=== PATIENT | female | born 1940 | race Caucasian/White ===

== ENCOUNTER 2021-06-03 19:14 | Observation (INO) | payer MEDICARE, OTHER ==
[2021-06-03] MEDS ORDERED: Albuterol/Ipratropium 3.0-0.5 MG/3 ML Neb Soln NEB ONE (19:27)
--- NOTE | 2021-06-03 19:39 | EDM.PDOC ---
ED HPI GENERAL MEDICAL PROBLEM - General Chief Complaint: Respiratory Problem Stated Complaint: SUMEET AMB Time Seen by Provider: 06/03/21 19:16 Source of Information: Reports: Patient, EMS History Limitations: Reports: No Limitations - History of Present Illness INITIAL COMMENTS - FREE TEXT/NARRATIVE: The patient presents by [facility] for shortness of breath, cough and fever. This started a couple days ago. The patient has a history of COPD and she is supposed to be on oxygen. She left it at home because the tank was to big for travel. She tried to get a portable tank but they could not accommodate the patient before she left. She has a productive cough. Her oxygen saturations were in the 80s when EMS arrived. They gave her oxygen and a breathing treatment. She feels a little better. She has no chest pain. She has no swelling or pain in her legs. Onset: Gradual Duration: Day(s): Severity: Moderate Improves with: Reports: None Worsens with: Reports: None Associated Symptoms: Reports: Cough, Fever/Chills, Shortness of Breath. Denies: Chest Pain, Headaches, Nausea/Vomiting - Related Data Allergies Allergy/AdvReac Type Severity Reaction Status Date / Time No Known Allergies Allergy Verified 06/03/21 19:25 Home Meds: Home Meds . [Unable To Obtain] 1 dose PO ASDIRECTED 06/03/21 [History] Past Medical History HEENT History: Reports: Other (See Below) Other HEENT History: no teeth Cardiovascular History: Reports: High Cholesterol, Hypertension Respiratory History: Reports: COPD Musculoskeletal History: Reports: Back Pain, Chronic, Other (See Below) Other Musculoskeletal History: back surgeries - Past Surgical History HEENT Surgical History: Reports: Oral Surgery Social & Family History - Tobacco Use Tobacco Use Status *Q: Never Tobacco User Second Hand Smoke Exposure: No - Caffeine Use Caffeine Use: Reports: None - Recreational Drug Use Recreational Drug Use: No ED ROS GENERAL - Review of Systems Review Of Systems: See Below Constitutional: Reports: Fever, Chills HEENT: Reports: No Symptoms Respiratory: Reports: Shortness of Breath, Wheezing, Cough Cardiovascular: Reports: No Symptoms Endocrine: Reports: No Symptoms GI/Abdominal: Reports: No Symptoms : Reports: No Symptoms Musculoskeletal: Reports: No Symptoms Skin: Reports: No Symptoms Neurological: Reports: No Symptoms ED EXAM, GENERAL - Physical Exam Exam: See Below Exam Limited By: No Limitations General Appearance: Alert, No Apparent Distress Ears: Normal External Exam Nose: Normal Inspection Head: Atraumatic, Normocephalic Neck: Normal Inspection Respiratory/Chest: Decreased Breath Sounds, Rhonchi Cardiovascular: No Edema, No Murmur, Tachycardia GI/Abdominal: Soft, Non-Tender, No Organomegaly, No Mass Back Exam: Normal Inspection Extremities: Normal Inspection #1 Interpretation EKG Date: 06/03/21 Time: 19:38 Rhythm: Other (sinus tachycardia) Rate (Beats/Min): 111 [place]: Normal P-Wave: Present QRS: Normal ST-T: Normal QT: Normal Course - Vital Signs Last Recorded V/S: Last Vital Signs Temp 99.8 F 06/03/21 19:23 Pulse 113 H 06/03/21 19:23 Resp 22 H 06/03/21 19:23 BP 161/81 H 06/03/21 19:23 Pulse Ox 95 06/04/21 01:07 - Orders/Labs/Meds Orders: Active Orders 24 hr Category Date Time Status Oxygen Therapy [RC] ASDIRECTED Care 06/03/21 19:50 Active Peripheral IV Care [RC] . DIRECTED Care 06/03/21 19:29 Active RT Aerosol Therapy [RC] ASDIRECTED Care 06/04/21 01:07 Active Ang Chest [CT] Stat Exams 06/03/21 20:44 Taken Chest 1V Frontal [CR] Stat Exams 06/03/21 19:28 Taken BLOOD CULTURE [MREF] Stat Lab 06/03/21 19:37 Received BLOOD CULTURE [MREF] Stat Lab 06/03/21 19:46 Received Sodium Chloride 0.9% [Normal Saline] 100 ml Med 06/03/21 21:45 Active IV ASDIRECTED Sodium Chloride 0.9% [Saline Flush] Med 06/03/21 19:27 Active 10 ml FLUSH ASDIRECTED PRN Blood Culture x2 Reflex Set [OM.PC] Stat Oth 06/03/21 19:28 Ordered Isolation [COMM] Routine Oth 06/03/21 19:31 Ordered Peripheral IV Insertion Adult [OM.PC] Stat Oth 06/03/21 19:28 Ordered Medication Orders Sodium Chloride (Normal Saline) 100 mls @ 30 mls/min IV ASDIRECTED [facility] Last Admin: 06/03/21 21:38 Dose: 30 mls/min Documented by: MAY Sodium Chloride (Sodium Chloride 0.9% 10 Ml Syringe) 10 ml FLUSH ASDIRECTED PRN PRN Reason: Keep Vein Open Last Admin: 06/03/21 21:38 Dose: 10 ml Documented by: Admin: 06/03/21 19:49 Dose: 10 ml Documented by: MICHELE Labs: Laboratory Tests 06/03/21 06/03/21 06/03/21 Range/Units 19:16 19:20 19:20 WBC 6.58 (3.98-10.04) K/mm3 RBC 5.26 H (3.98-5.22) M/mm3 Hgb 13.6 (11.2-15.7) gm/dl Hct 44.4 (34.1-44.9) % MCV 84.4 (79.4-94.8) fl MCH 25.9 (25.6-32.2) pg MCHC 30.6 L (32.2-35.5) g/dl RDW Std Deviation 52.4 H (36.4-46.3) fL Plt Count 152 L (182-369) K/mm3 MPV 11.3 (9.4-12.3) fl Neutrophils % (Manual) 77 H (40-60) % Band Neutrophils % 0 (0-10) % Lymphocytes % (Manual) 16 L (20-40) % Atypical Lymphs % 0 % Monocytes % (Manual) 7 (2-10) % Eosinophils % (Manual) 0 L (0.7-5.8) % Basophils % (Manual) 0 L (0.1-1.2) Platelet Estimate Adequate Plt Morphology Comment Normal RBC Morph Comment Normal PT (9.7-12.0) SECONDS INR D-Dimer, Quantitative 0.63 H (0.19-0.50) mg/L Puncture Site ABG pH (7.35-7.45) ABG pCO2 (35.0-45.0) mmHg ABG pO2 (80.0-100.0) mmHg ABG HCO3 (22.0-26.0) meq/L ABG O2 Saturation (96.0-97.0) % ABG Base Excess (-2-2.0) Mata Test A-a Gradient mmHg O2 Delivery Device Oxygen Flow Rate FiO2 (21.00-100.00) % Sodium (136-145) mEq/L Potassium (3.5-5.1) mEq/L Chloride (98-107) mEq/L Carbon Dioxide (21-32) mEq/L Anion Gap (5-15) BUN (7-18) mg/dL Creatinine (0.55-1.02) mg/dL Est Cr Clr Drug Dosing mL/min Estimated GFR (MDRD) (>60) mL/min BUN/Creatinine Ratio (14-18) Glucose (70-99) mg/dL Lactic Acid (0.4-2.0) mmol/L Calcium (8.5-10.1) mg/dL Total Bilirubin (0.2-1.0) mg/dL AST (15-37) U/L ALT (14-59) U/L Alkaline Phosphatase (46-116) U/L Troponin I (0.00-0.056) ng/mL C-Reactive Protein (<1.0) mg/dL NT-Pro-B Natriuret Pep (0-450) pg/mL Total Protein (6.4-8.2) g/dl Albumin (3.4-5.0) g/dl Globulin gm/dL Albumin/Globulin Ratio (1-2) Influenza Type A RNA Negative (NEGATIVE) RSV RNA (INAAT) Positive H (NEGATIVE) Influenza Type B RNA Negative (NEGATIVE) SARS-CoV-2 RNA (MOHAMUD) Negative (NEGATIVE) 06/03/21 06/03/21 06/03/21 Range/Units 19:20 19:20 19:20 WBC (3.98-10.04) K/mm3 RBC (3.98-5.22) M/mm3 Hgb (11.2-15.7) gm/dl Hct (34.1-44.9) % MCV (79.4-94.8) fl MCH (25.6-32.2) pg MCHC (32.2-35.5) g/dl RDW Std Deviation (36.4-46.3) fL Plt Count (182-369) K/mm3 MPV (9.4-12.3) fl Neutrophils % (Manual) (40-60) % Band Neutrophils % (0-10) % Lymphocytes % (Manual) (20-40) % Atypical Lymphs % % Monocytes % (Manual) (2-10) % Eosinophils % (Manual) (0.7-5.8) % Basophils % (Manual) (0.1-1.2) Platelet Estimate Plt Morphology Comment RBC Morph Comment PT (9.7-12.0) SECONDS INR D-Dimer, Quantitative (0.19-0.50) mg/L Puncture Site ABG pH (7.35-7.45) ABG pCO2 (35.0-45.0) mmHg ABG pO2 (80.0-100.0) mmHg ABG HCO3 (22.0-26.0) meq/L ABG O2 Saturation (96.0-97.0) % ABG Base Excess (-2-2.0) Mata Test A-a Gradient mmHg O2 Delivery Device Oxygen Flow Rate FiO2 (21.00-100.00) % Sodium 137 (136-145) mEq/L Potassium 4.3 (3.5-5.1) mEq/L Chloride 100 (98-107) mEq/L Carbon Dioxide 27 (21-32) mEq/L Anion Gap 14.3 (5-15) BUN 17 (7-18) mg/dL Creatinine 1.0 (0.55-1.02) mg/dL Est Cr Clr Drug Dosing 38.35 mL/min Estimated GFR (MDRD) 54 (>60) mL/min BUN/Creatinine Ratio 17.0 (14-18) Glucose 95 (70-99) mg/dL Lactic Acid 1.4 (0.4-2.0) mmol/L Calcium 8.4 L (8.5-10.1) mg/dL Total Bilirubin 0.9 (0.2-1.0) mg/dL AST 57 H (15-37) U/L ALT 38 (14-59) U/L Alkaline Phosphatase 286 H (46-116) U/L Troponin I 0.091 H* (0.00-0.056) ng/mL C-Reactive Protein 6.5 H* (<1.0) mg/dL NT-Pro-B Natriuret Pep 198 (0-450) pg/mL Total Protein 7.4 (6.4-8.2) g/dl Albumin 2.9 L (3.4-5.0) g/dl Globulin 4.5 gm/dL Albumin/Globulin Ratio 0.6 L (1-2) Influenza Type A RNA (NEGATIVE) RSV RNA (INAAT) (NEGATIVE) Influenza Type B RNA (NEGATIVE) SARS-CoV-2 RNA (MOHAMUD) (NEGATIVE) 06/03/21 06/03/21 06/03/21 Range/Units 19:20 20:03 21:48 WBC (3.98-10.04) K/mm3 RBC (3.98-5.22) M/mm3 Hgb (11.2-15.7) gm/dl Hct (34.1-44.9) % MCV (79.4-94.8) fl MCH (25.6-32.2) pg MCHC (32.2-35.5) g/dl RDW Std Deviation (36.4-46.3) fL Plt Count (182-369) K/mm3 MPV (9.4-12.3) fl Neutrophils % (Manual) (40-60) % Band Neutrophils % (0-10) % Lymphocytes % (Manual) (20-40) % Atypical Lymphs % % Monocytes % (Manual) (2-10) % Eosinophils % (Manual) (0.7-5.8) % Basophils % (Manual) (0.1-1.2) Platelet Estimate Plt Morphology Comment RBC Morph Comment PT 18.0 H (9.7-12.0) SECONDS INR 1.65 D-Dimer, Quantitative (0.19-0.50) mg/L Puncture Site Lt radial ABG pH 7.38 (7.35-7.45) ABG pCO2 41.8 (35.0-45.0) mmHg ABG pO2 64.0 L (80.0-100.0) mmHg ABG HCO3 23.9 (22.0-26.0) meq/L ABG O2 Saturation 93.7 L (96.0-97.0) % ABG Base Excess -0.8 (-2-2.0) Mata Test Positive A-a Gradient 84 mmHg O2 Delivery Device Nasal cannula Oxygen Flow Rate 2.0 FiO2 28.00 (21.00-100.00) % Sodium (136-145) mEq/L Potassium (3.5-5.1) mEq/L Chloride (98-107) mEq/L Carbon Dioxide (21-32) mEq/L Anion Gap (5-15) BUN (7-18) mg/dL Creatinine (0.55-1.02) mg/dL Est Cr Clr Drug Dosing mL/min Estimated GFR (MDRD) (>60) mL/min BUN/Creatinine Ratio (14-18) Glucose (70-99) mg/dL Lactic Acid (0.4-2.0) mmol/L Calcium (8.5-10.1) mg/dL Total Bilirubin (0.2-1.0) mg/dL AST (15-37) U/L ALT (14-59) U/L Alkaline Phosphatase (46-116) U/L Troponin I 0.125 H* (0.00-0.056) ng/mL C-Reactive Protein (<1.0) mg/dL NT-Pro-B Natriuret Pep (0-450) pg/mL Total Protein (6.4-8.2) g/dl Albumin (3.4-5.0) g/dl Globulin gm/dL Albumin/Globulin Ratio (1-2) Influenza Type A RNA (NEGATIVE) RSV RNA (INAAT) (NEGATIVE) Influenza Type B RNA (NEGATIVE) SARS-CoV-2 RNA (MOHAMUD) (NEGATIVE) 06/04/21 Range/Units 01:22 WBC (3.98-10.04) K/mm3 RBC (3.98-5.22) M/mm3 Hgb (11.2-15.7) gm/dl Hct (34.1-44.9) % MCV (79.4-94.8) fl MCH (25.6-32.2) pg MCHC (32.2-35.5) g/dl RDW Std Deviation (36.4-46.3) fL Plt Count (182-369) K/mm3 MPV (9.4-12.3) fl Neutrophils % (Manual) (40-60) % Band Neutrophils % (0-10) % Lymphocytes % (Manual) (20-40) % Atypical Lymphs % % Monocytes % (Manual) (2-10) % Eosinophils % (Manual) (0.7-5.8) % Basophils % (Manual) (0.1-1.2) Platelet Estimate Plt Morphology Comment RBC Morph Comment PT (9.7-12.0) SECONDS INR D-Dimer, Quantitative (0.19-0.50) mg/L Puncture Site ABG pH (7.35-7.45) ABG pCO2 (35.0-45.0) mmHg ABG pO2 (80.0-100.0) mmHg ABG HCO3 (22.0-26.0) meq/L ABG O2 Saturation (96.0-97.0) % ABG Base Excess (-2-2.0) Mata Test A-a Gradient mmHg O2 Delivery Device Oxygen Flow Rate FiO2 (21.00-100.00) % Sodium (136-145) mEq/L Potassium (3.5-5.1) mEq/L Chloride (98-107) mEq/L Carbon Dioxide (21-32) mEq/L Anion Gap (5-15) BUN (7-18) mg/dL Creatinine (0.55-1.02) mg/dL Est Cr Clr Drug Dosing mL/min Estimated GFR (MDRD) (>60) mL/min BUN/Creatinine Ratio (14-18) Glucose (70-99) mg/dL Lactic Acid (0.4-2.0) mmol/L Calcium (8.5-10.1) mg/dL Total Bilirubin (0.2-1.0) mg/dL AST (15-37) U/L ALT (14-59) U/L Alkaline Phosphatase (46-116) U/L Troponin I 0.070 H* (0.00-0.056) ng/mL C-Reactive Protein (<1.0) mg/dL NT-Pro-B Natriuret Pep (0-450) pg/mL Total Protein (6.4-8.2) g/dl Albumin (3.4-5.0) g/dl Globulin gm/dL Albumin/Globulin Ratio (1-2) Influenza Type A RNA (NEGATIVE) RSV RNA (INAAT) (NEGATIVE) Influenza Type B RNA (NEGATIVE) SARS-CoV-2 RNA (MOHAMUD) (NEGATIVE) Meds: Medications Generic Name Dose Route Start Last Admin Trade Name Freq PRN Reason Stop Dose Admin Sodium Chloride 100 mls @ 30 mls/min 06/03/21 21:45 06/03/21 21:38 Normal Saline IV 30 mls/min ASDIRECTED PIA Administration Sodium Chloride 10 ml 06/03/21 19:27 06/03/21 21:38 Sodium Chloride 0.9% 10 Ml Syringe FLUSH 10 ml ASDIRECTED PRN Administration Keep Vein Open Discontinued Medications Generic Name Dose Route Start Last Admin Trade Name Bon PRN Reason Stop Dose Admin Albuterol/Ipratropium 3 ml 06/03/21 19:27 06/03/21 19:54 Albuterol/Ipratropium 3.0-0.5 Mg/3 Ml Neb Soln NEB 06/03/21 19:28 3 ml ONETIME ONE Administration Albuterol/Ipratropium 3 ml 06/04/21 01:06 06/04/21 01:23 Albuterol/Ipratropium 3.0-0.5 Mg/3 Ml Neb Soln NEB 06/04/21 01:07 3 ml ONETIME ONE Administration Aspirin 324 mg 06/03/21 22:43 Aspirin 81 Mg Tab.Chew PO 06/03/21 22:44 ONETIME ONE Ceftriaxone Sodium 2 gm/ 100 mls @ 200 mls/hr 06/03/21 20:42 06/03/21 21:14 Sodium Chloride IV 06/03/21 21:11 200 mls/hr ONETIME ONE Administration Iopamidol 100 ml 06/03/21 21:36 06/03/21 21:38 Iopamidol 755 Mg/Ml 100 Ml Bottle IVPUSH 06/03/21 21:37 100 ml ONETIME ONE Administration Methylprednisolone Sodium Succinate 125 mg 06/03/21 20:42 06/03/21 21:14 Methylprednisolone Sodium Succinate 125 Mg/2 Ml Sdv IVPUSH 06/03/21 20:43 125 mg ONETIME ONE Administration Sodium Chloride 10 ml 06/03/21 21:36 06/03/21 22:00 Sodium Chloride 0.9% 10 Ml Sdv FLUSH 06/03/21 21:37 10 ml ONETIME ONE Administration - Re-Assessments/Exams Free Text/Narrative Re-Assessment/Exam: 06/03/21 19:44 I ordered oxygen, IV saline lock, EKG, CXR, COVID, influenza, blood cultures, and labs. Her EKG shows a sinus tachycardia with no acute changes. 06/03/21 22:07 Her CXR shows some possible bronchitis. Her WBC was normal. Her platelets are a little low at 152. Her D-dimer was elevated at 0.63. Her pH is normal at 7.38. Her pCO2 is normal at 41.8. Her pO2 is low at 64. Her lactic acid is normal at 1.4. Her AST is elevated at 57. Her alk phos was elevated at 286. Her troponin is elevated at 0.091. Her CRP is elevated at 6.5. Her BNP is elevated at 198. Her influenza and COVID are negative. She is positive for RSV. She has 2 grandchildren sick with RSV and one is admitted to [place]. I have ordered a CT angio of her chest and repeat troponin. 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 Findings of bronchitis/bronchiolitis. Liver appears cirrhotic. Splenomegaly. I am waiting on the repeat troponin. 06/04/21 02:26 Her repeat troponin went up slightly to 0.125. I still feel this is from the hypoxia she had from no oxygen and the RSV bronchitis. I will give her another breathing treatment and repeat the troponin at 6 hours. The repeat was 0.07. I will admit to the hospitalist service. Departure - Departure Time of Disposition: 02:30 Disposition: Refer to Observation Condition: Fair Clinical Impression: RSV bronchitis, Hypoxia, COPD exacerbation, Elevated troponin - Discharge Information Forms: ED Department Discharge Sepsis Event Note (ED) - Focused Exam Vital Signs: Vital Signs Temp Pulse Resp BP Pulse Ox Pulse Ox 06/04/21 01:07 95 06/03/21 19:55 95 06/03/21 19:50 95 06/03/21 19:23 99.8 F 113 H 22 H 161/81 H 90 L - My Orders Last 24 Hours: My Active Orders 06/03/21 19:27 Sodium Chloride 0.9% [Saline Flush] 10 ml FLUSH ASDIRECTED PRN 06/03/21 19:28 Chest 1V Frontal [CR] Stat Blood Culture x2 Reflex Set [OM.PC] Stat Peripheral IV Insertion Adult [OM.PC] Stat 06/03/21 19:29 Peripheral IV Care [RC] . DIRECTED 06/03/21 19:31 Isolation [COMM] Routine 06/03/21 19:37 BLOOD CULTURE [MREF] Stat 06/03/21 19:46 BLOOD CULTURE [MREF] Stat 06/03/21 19:50 Oxygen Therapy [RC] ASDIRECTED 06/03/21 20:44 Ang Chest [CT] Stat 06/03/21 21:45 Sodium Chloride 0.9% [Normal Saline] 100 ml IV ASDIRECTED 06/04/21 01:07 RT Aerosol Therapy [RC] ASDIRECTED - Assessment/Plan Last 24 Hours: My Active Orders 06/03/21 19:27 Sodium Chloride 0.9% [Saline Flush] 10 ml FLUSH ASDIRECTED PRN 06/03/21 19:28 Chest 1V Frontal [CR] Stat Blood Culture x2 Reflex Set [OM.PC] Stat Peripheral IV Insertion Adult [OM.PC] Stat 06/03/21 19:29 Peripheral IV Care [RC] . DIRECTED 06/03/21 19:31 Isolation [COMM] Routine 06/03/21 19:37 BLOOD CULTURE [MREF] Stat 06/03/21 19:46 BLOOD CULTURE [MREF] Stat 06/03/21 19:50 Oxygen Therapy [RC] ASDIRECTED 06/03/21 20:44 Ang Chest [CT] Stat 06/03/21 21:45 Sodium Chloride 0.9% [Normal Saline] 100 ml IV ASDIRECTED 06/04/21 01:07 RT Aerosol Therapy [RC] ASDIRECTED
[2021-06-03] MEDS: Sodium Chloride 0.9% 10 ML Syringe FLUSH PRN ×2 (19:49→21:38)
[2021-06-03 20:16] LABS: CORONAVIRUS COVID-19 NAA NEGATIVE (NEGATIVE)
[2021-06-03] MEDS ORDERED: cefTRIAXone 2 GM in Sodium Chloride 0.9% 100 ML IV ONE (20:42)
[2021-06-03] MEDS ORDERED: methylPREDNISolone Sodium Succinate 125 MG/2 ML SDV IVPUSH ONE (20:42)
[2021-06-03] MEDS ORDERED: Iopamidol 755 Mg/ML 100 ML Bottle IVPUSH ONE (21:36)
[2021-06-03] MEDS ORDERED: Sodium Chloride 0.9% 10 ML SDV FLUSH ONE (21:36)
[2021-06-03] MEDS ORDERED: Sodium Chloride 0.9% 100 ML IV SCH (21:45)
[2021-06-03] MEDS ORDERED: Aspirin 81 MG Tab.Chew PO ONE (22:43)
[2021-06-04] MEDS ORDERED: Albuterol/Ipratropium 3.0-0.5 MG/3 ML Neb Soln NEB ONE (01:06)
[2021-06-04] MEDS: Acetaminophen 325 MG Tab PO PRN ×2 (05:33→21:41)
--- NOTE | 2021-06-04 06:55 | PCM.HP.2 ---
H&P History of Present Illness - General Date of Service: 06/04/21 Admit Problem/Dx: Admission Diagnosis/Problem Admission Diagnosis/Problem Bronchitis Source of Information: Patient, Old Records, Provider, RN, RN Notes Reviewed History Limitations: Reports: No Limitations - History of Present Illness Initial Comments - Free Text/Narative: Is a 80-year-old female who presents to our ED on the evening of 06/03/2021 via [place] [facility] for shortness of breath, cough and fever that has been ongoing for a few days. Patient resides in [facility] but is up here visiting her daughter. She does have a granddaughter who is RSV positive and is currently hospitalized. She has a history of COPD and is supposed to be on oxygen therapy at night chronically (2.5L) however she has been traveling and did not bring it with. She reports a productive cough. Upon EMS arrival saturations were noted to be in the 80s. She was given a breathing treatment and started on oxygen which improved her symptoms. Denies any chest pain, swelling, or pain in her legs. In the ED twelve-lead EKG was obtained showing sinus tachycardia 111 bpm but no ectopy. Temp was 99.8 Fahrenheit. Respirations 22. Blood pressure 161/81. Pulse ox 95% on oxygen. Labs were obtained showing a WBC of 6.58. Hemoglobin 13.6. Platelet 152,000. Neutrophils were elevated at 77%. There is no bandemia. D-dimer 0.63. Sodium is 137. Potassium 4.3. Chloride 100. Carbon dioxide 27. Anion gap 14.3. BUN is 17. Creatinine 1.0. GFR is 54. Glucose 95. Lactic acid 1.4. Calcium 8.4. Bilirubin 0.9. AST is 57, ALT 38, alkaline phosphatase 286. Troponin is elevated at 0.091. This is repeated and elevated at 0.125. Again this is rechecked and has come down to 0.070. CRP is 6.5. proBNP is 198. Albumin is 2.9. INR is 1.65. ABGs obtained in the left radial with a pH of 7.38. PCO2 of 41.8. PO2 of 64.0. HCO3 of 23.9. O2 saturations 93.7. AA gradient is 84. Obtained well on 2 L via nasal cannula. SARS-CoV-2 RNA is negative. Influenza a and B are both negative. RSV is positive. Chest x-ray is obtained and shows prior surgery and a left lung base nodule. Consider repeat CT study to confirm stability in 6 months. CTA is obtained showing "1. 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 Atherosclerotic calcification is seen within this area and the study is not optimal for evaluation of stenosis. Formal angiogram would be helpful to further define if clinically indicated. 2. Scattered nodularity within the chest. 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 Please correlate if patient symptoms warrant further evaluation repeat CT study in 6 months to confirm stability. 3. Cirrhotic change within the liver. 4. No findings of pulmonary embolism. 5. Other findings as described above are most likely chronic." She is given a DuoNeb and 325 mg aspirin. She is given 2 g of Rocephin and 125 mg methylprednisolone. She carries a history of HLD, hypertension, COPD, chronic back pain. She is a full code. She does not have a PCP locally. She subsequently admitted observation status on telemetry to the medical floor for management of her RSV, hypoxia, COPD exacerbation, and elevated troponin. - Related Data Allergies/Adverse Reactions: Allergies Allergy/AdvReac Type Severity Reaction Status Date / Time No Known Allergies Allergy Verified 06/03/21 19:25 Home Medications: Home Meds . [Unable To Obtain] 1 dose PO ASDIRECTED 06/03/21 [History] Past Medical History HEENT History: Reports: Cataract, Impaired Vision, Other (See Below) Other HEENT History: Missing teeth, wears glasses Cardiovascular History: Reports: High Cholesterol, Hypertension Respiratory History: Reports: Bronchitis, Recurrent, COPD, Pneumonia, Recurrent Gastrointestinal History: Reports: Cirrhosis, Hiatal Hernia Musculoskeletal History: Reports: Back Pain, Chronic, Other (See Below) Other Musculoskeletal History: back surgery twice to lumbar spine Neurological History: Reports: Migraines Psychiatric History: Reports: Anxiety, Depression Endocrine/Metabolic History: Reports: Hypothyroidism, Obesity/BMI 30+ Hematologic History: Reports: Blood Transfusion(s) Oncologic (Cancer) History: Reports: Breast - Infectious Disease History Infectious Disease History: Reports: Shingles - Past Surgical History HEENT Surgical History: Reports: Oral Surgery Cardiovascular Surgical History: Reports: None Respiratory Surgical History: Reports: None GI Surgical History: Reports: Cholecystectomy, Lysis of Adhesions Female Surgical History: Reports: None Endocrine Surgical History: Reports: None Neurological Surgical History: Reports: None Musculoskeletal Surgical History: Reports: Hip Replacement, Other (See Below) Other Musculoskeletal Surgeries/Procedures:: bilateral hips and bilateral knees replaced Oncologic Surgical History: Reports: Lumpectomy, Mastectomy, Other (See Below) Other Oncologic Surgeries/Procedures: Lt mastectomy, Rt breast lumpectomy Social & Family History - Tobacco Use Tobacco Use Status *Q: Former Tobacco User Years of Tobacco use: 15 Packs/Tins Daily: 1 Used Tobacco, but Quit: Yes Month/Year Tobacco Last Used: unknown Tobacco Use Comment: Pt reportedly quit in her 30s Second Hand Smoke Exposure: No - Caffeine Use Caffeine Use: Reports: None - Recreational Drug Use Recreational Drug Use: No H&P Review of Systems - Review of Systems: Review Of Systems: See Below General: Reports: Fever, Chills, Malaise, Weakness, Fatigue HEENT: Reports: No Symptoms. Denies: Headaches, Sore Throat Pulmonary: Reports: Shortness of Breath, Wheezing, Cough, Sputum. Denies: Pleuritic Chest Pain Cardiovascular: Reports: Dyspnea on Exertion, Orthopnea. Denies: Chest Pain, Palpitations, Edema Gastrointestinal: Reports: No Symptoms. Denies: Abdominal Pain, Constipation, Diarrhea, Nausea, Vomiting Genitourinary: Reports: No Symptoms. Denies: Pain Musculoskeletal: Reports: Back Pain (Chronic ) Skin: Reports: No Symptoms. Denies: Cyanosis Psychiatric: Reports: No Symptoms. Denies: Confusion Neurological: Reports: No Symptoms, Difficulty Walking, Weakness. Denies: Confusion, Dizziness, Headache, Numbness, Pre-Existing Deficit, Seizure, Syncope, Tingling, Tremors, Trouble Speaking, Change in Speech, Gait Disturbance Hematologic/Lymphatic: Reports: No Symptoms Immunologic: Reports: No Symptoms Exam - Exam Exam: See Below - Vital Signs Vital Signs: Last Vital Signs Temp 98.4 F 06/04/21 04:33 Pulse 92 06/04/21 03:50 Resp 20 06/04/21 03:50 BP 123/59 L 06/04/21 03:50 Pulse Ox 95 06/04/21 03:50 Weight: 194 lb - Exam Quality Assessment: Supplemental Oxygen (2L), DVT Prophylaxis. No: Urinary Catheter General: Alert, Oriented, Cooperative. No: Mild Distress HEENT: Conjunctiva Clear, EACs Clear, Mucosa Moist & [place], Posterior Pharynx Clear Neck: Supple, Trachea Midline Lungs: Normal Respiratory Effort, Decreased Breath Sounds, Rhonchi, Wheezing Cardiovascular: Regular Rate, Regular Rhythm GI/Abdominal Exam: Normal Bowel Sounds, Soft, Non-Tender, No Distention (Female) Exam: Deferred Rectal (Female) Exam: Deferred Back Exam: Normal Inspection, Decreased Range of Motion Extremities: Normal Inspection, Normal Range of Motion, Non-Tender, No Pedal Edema, Normal Capillary Refill Peripheral Pulses: 2+: Radial (L), Radial (R), Dorsalis Pedis (L), Dorsalis Pedis (R) Skin: Warm, Dry, Intact Neurological: Cranial Nerves Intact (Grossly) Neuro Extensive - Mental Status: Alert, Oriented x3, Normal Mood/Affect - Patient Data Lab Results Last 24 hrs: Laboratory Results - last 24 hr 06/03/21 06/03/21 06/03/21 Range/Units 19:16 19:20 19:20 WBC 6.58 (3.98-10.04) K/mm3 RBC 5.26 H (3.98-5.22) M/mm3 Hgb 13.6 (11.2-15.7) gm/dl Hct 44.4 (34.1-44.9) % MCV 84.4 (79.4-94.8) fl MCH 25.9 (25.6-32.2) pg MCHC 30.6 L (32.2-35.5) g/dl RDW Std Deviation 52.4 H (36.4-46.3) fL Plt Count 152 L (182-369) K/mm3 MPV 11.3 (9.4-12.3) fl Neutrophils % (Manual) 77 H (40-60) % Band Neutrophils % 0 (0-10) % Lymphocytes % (Manual) 16 L (20-40) % Atypical Lymphs % 0 % Monocytes % (Manual) 7 (2-10) % Eosinophils % (Manual) 0 L (0.7-5.8) % Basophils % (Manual) 0 L (0.1-1.2) Platelet Estimate Adequate Plt Morphology Comment Normal RBC Morph Comment Normal PT (9.7-12.0) SECONDS INR D-Dimer, Quantitative 0.63 H (0.19-0.50) mg/L Puncture Site ABG pH (7.35-7.45) ABG pCO2 (35.0-45.0) mmHg ABG pO2 (80.0-100.0) mmHg ABG HCO3 (22.0-26.0) meq/L ABG O2 Saturation (96.0-97.0) % ABG Base Excess (-2-2.0) Mata Test A-a Gradient mmHg O2 Delivery Device Oxygen Flow Rate FiO2 (21.00-100.00) % Sodium (136-145) mEq/L Potassium (3.5-5.1) mEq/L Chloride (98-107) mEq/L Carbon Dioxide (21-32) mEq/L Anion Gap (5-15) BUN (7-18) mg/dL Creatinine (0.55-1.02) mg/dL Est Cr Clr Drug Dosing mL/min Estimated GFR (MDRD) (>60) mL/min BUN/Creatinine Ratio (14-18) Glucose (70-99) mg/dL Lactic Acid (0.4-2.0) mmol/L Calcium (8.5-10.1) mg/dL Total Bilirubin (0.2-1.0) mg/dL AST (15-37) U/L ALT (14-59) U/L Alkaline Phosphatase (46-116) U/L Troponin I (0.00-0.056) ng/mL C-Reactive Protein (<1.0) mg/dL NT-Pro-B Natriuret Pep (0-450) pg/mL Total Protein (6.4-8.2) g/dl Albumin (3.4-5.0) g/dl Globulin gm/dL Albumin/Globulin Ratio (1-2) Influenza Type A RNA Negative (NEGATIVE) RSV RNA (INAAT) Positive H (NEGATIVE) Influenza Type B RNA Negative (NEGATIVE) SARS-CoV-2 RNA (MOHAMUD) Negative (NEGATIVE) 06/03/21 06/03/21 06/03/21 Range/Units 19:20 19:20 19:20 WBC (3.98-10.04) K/mm3 RBC (3.98-5.22) M/mm3 Hgb (11.2-15.7) gm/dl Hct (34.1-44.9) % MCV (79.4-94.8) fl MCH (25.6-32.2) pg MCHC (32.2-35.5) g/dl RDW Std Deviation (36.4-46.3) fL Plt Count (182-369) K/mm3 MPV (9.4-12.3) fl Neutrophils % (Manual) (40-60) % Band Neutrophils % (0-10) % Lymphocytes % (Manual) (20-40) % Atypical Lymphs % % Monocytes % (Manual) (2-10) % Eosinophils % (Manual) (0.7-5.8) % Basophils % (Manual) (0.1-1.2) Platelet Estimate Plt Morphology Comment RBC Morph Comment PT (9.7-12.0) SECONDS INR D-Dimer, Quantitative (0.19-0.50) mg/L Puncture Site ABG pH (7.35-7.45) ABG pCO2 (35.0-45.0) mmHg ABG pO2 (80.0-100.0) mmHg ABG HCO3 (22.0-26.0) meq/L ABG O2 Saturation (96.0-97.0) % ABG Base Excess (-2-2.0) Mata Test A-a Gradient mmHg O2 Delivery Device Oxygen Flow Rate FiO2 (21.00-100.00) % Sodium 137 (136-145) mEq/L Potassium 4.3 (3.5-5.1) mEq/L Chloride 100 (98-107) mEq/L Carbon Dioxide 27 (21-32) mEq/L Anion Gap 14.3 (5-15) BUN 17 (7-18) mg/dL Creatinine 1.0 (0.55-1.02) mg/dL Est Cr Clr Drug Dosing 38.35 mL/min Estimated GFR (MDRD) 54 (>60) mL/min BUN/Creatinine Ratio 17.0 (14-18) Glucose 95 (70-99) mg/dL Lactic Acid 1.4 (0.4-2.0) mmol/L Calcium 8.4 L (8.5-10.1) mg/dL Total Bilirubin 0.9 (0.2-1.0) mg/dL AST 57 H (15-37) U/L ALT 38 (14-59) U/L Alkaline Phosphatase 286 H (46-116) U/L Troponin I 0.091 H* (0.00-0.056) ng/mL C-Reactive Protein 6.5 H* (<1.0) mg/dL NT-Pro-B Natriuret Pep 198 (0-450) pg/mL Total Protein 7.4 (6.4-8.2) g/dl Albumin 2.9 L (3.4-5.0) g/dl Globulin 4.5 gm/dL Albumin/Globulin Ratio 0.6 L (1-2) Influenza Type A RNA (NEGATIVE) RSV RNA (INAAT) (NEGATIVE) Influenza Type B RNA (NEGATIVE) SARS-CoV-2 RNA (MOHAMUD) (NEGATIVE) 06/03/21 06/03/21 06/03/21 Range/Units 19:20 20:03 21:48 WBC (3.98-10.04) K/mm3 RBC (3.98-5.22) M/mm3 Hgb (11.2-15.7) gm/dl Hct (34.1-44.9) % MCV (79.4-94.8) fl MCH (25.6-32.2) pg MCHC (32.2-35.5) g/dl RDW Std Deviation (36.4-46.3) fL Plt Count (182-369) K/mm3 MPV (9.4-12.3) fl Neutrophils % (Manual) (40-60) % Band Neutrophils % (0-10) % Lymphocytes % (Manual) (20-40) % Atypical Lymphs % % Monocytes % (Manual) (2-10) % Eosinophils % (Manual) (0.7-5.8) % Basophils % (Manual) (0.1-1.2) Platelet Estimate Plt Morphology Comment RBC Morph Comment PT 18.0 H (9.7-12.0) SECONDS INR 1.65 D-Dimer, Quantitative (0.19-0.50) mg/L Puncture Site Lt radial ABG pH 7.38 (7.35-7.45) ABG pCO2 41.8 (35.0-45.0) mmHg ABG pO2 64.0 L (80.0-100.0) mmHg ABG HCO3 23.9 (22.0-26.0) meq/L ABG O2 Saturation 93.7 L (96.0-97.0) % ABG Base Excess -0.8 (-2-2.0) Mata Test Positive A-a Gradient 84 mmHg O2 Delivery Device Nasal cannula Oxygen Flow Rate 2.0 FiO2 28.00 (21.00-100.00) % Sodium (136-145) mEq/L Potassium (3.5-5.1) mEq/L Chloride (98-107) mEq/L Carbon Dioxide (21-32) mEq/L Anion Gap (5-15) BUN (7-18) mg/dL Creatinine (0.55-1.02) mg/dL Est Cr Clr Drug Dosing mL/min Estimated GFR (MDRD) (>60) mL/min BUN/Creatinine Ratio (14-18) Glucose (70-99) mg/dL Lactic Acid (0.4-2.0) mmol/L Calcium (8.5-10.1) mg/dL Total Bilirubin (0.2-1.0) mg/dL AST (15-37) U/L ALT (14-59) U/L Alkaline Phosphatase (46-116) U/L Troponin I 0.125 H* (0.00-0.056) ng/mL C-Reactive Protein (<1.0) mg/dL NT-Pro-B Natriuret Pep (0-450) pg/mL Total Protein (6.4-8.2) g/dl Albumin (3.4-5.0) g/dl Globulin gm/dL Albumin/Globulin Ratio (1-2) Influenza Type A RNA (NEGATIVE) RSV RNA (INAAT) (NEGATIVE) Influenza Type B RNA (NEGATIVE) SARS-CoV-2 RNA (MOHAMUD) (NEGATIVE) 06/04/21 Range/Units 01:22 WBC (3.98-10.04) K/mm3 RBC (3.98-5.22) M/mm3 Hgb (11.2-15.7) gm/dl Hct (34.1-44.9) % MCV (79.4-94.8) fl MCH (25.6-32.2) pg MCHC (32.2-35.5) g/dl RDW Std Deviation (36.4-46.3) fL Plt Count (182-369) K/mm3 MPV (9.4-12.3) fl Neutrophils % (Manual) (40-60) % Band Neutrophils % (0-10) % Lymphocytes % (Manual) (20-40) % Atypical Lymphs % % Monocytes % (Manual) (2-10) % Eosinophils % (Manual) (0.7-5.8) % Basophils % (Manual) (0.1-1.2) Platelet Estimate Plt Morphology Comment RBC Morph Comment PT (9.7-12.0) SECONDS INR D-Dimer, Quantitative (0.19-0.50) mg/L Puncture Site ABG pH (7.35-7.45) ABG pCO2 (35.0-45.0) mmHg ABG pO2 (80.0-100.0) mmHg ABG HCO3 (22.0-26.0) meq/L ABG O2 Saturation (96.0-97.0) % ABG Base Excess (-2-2.0) Mata Test A-a Gradient mmHg O2 Delivery Device Oxygen Flow Rate FiO2 (21.00-100.00) % Sodium (136-145) mEq/L Potassium (3.5-5.1) mEq/L Chloride (98-107) mEq/L Carbon Dioxide (21-32) mEq/L Anion Gap (5-15) BUN (7-18) mg/dL Creatinine (0.55-1.02) mg/dL Est Cr Clr Drug Dosing mL/min Estimated GFR (MDRD) (>60) mL/min BUN/Creatinine Ratio (14-18) Glucose (70-99) mg/dL Lactic Acid (0.4-2.0) mmol/L Calcium (8.5-10.1) mg/dL Total Bilirubin (0.2-1.0) mg/dL AST (15-37) U/L ALT (14-59) U/L Alkaline Phosphatase (46-116) U/L Troponin I 0.070 H* (0.00-0.056) ng/mL C-Reactive Protein (<1.0) mg/dL NT-Pro-B Natriuret Pep (0-450) pg/mL Total Protein (6.4-8.2) g/dl Albumin (3.4-5.0) g/dl Globulin gm/dL Albumin/Globulin Ratio (1-2) Influenza Type A RNA (NEGATIVE) RSV RNA (INAAT) (NEGATIVE) Influenza Type B RNA (NEGATIVE) SARS-CoV-2 RNA (MOHAMUD) (NEGATIVE) Result Diagrams: 06/04/21 07:20 06/04/21 07:20 Sepsis Event Note - Evaluation Sepsis Screening Result: Sepsis Risk - Focused Exam Vital Signs: Vital Signs Temp Temp Pulse Pulse Resp BP BP 06/04/21 04:33 98.4 F 06/04/21 03:50 92 20 123/59 L 06/04/21 01:07 06/03/21 19:55 06/03/21 19:50 06/03/21 19:23 99.8 F 113 H 22 H 161/81 H Pulse Ox Pulse Ox 06/04/21 04:33 06/04/21 03:50 95 06/04/21 01:07 95 06/03/21 19:55 95 06/03/21 19:50 95 06/03/21 19:23 90 L - Problem List (1) Acute and chronic respiratory failure with hypoxia SNOMED Code(s): 35336173, 740426352 ICD Code: J96.21 - ACUTE AND CHRONIC RESPIRATORY FAILURE WITH HYPOXIA Status: Acute Priority: High Current Visit: Yes (2) On home O2 SNOMED Code(s): 958647459779 ICD Code: Z99.81 - DEPENDENCE ON SUPPLEMENTAL OXYGEN Status: Chronic Priority: Medium Current Visit: Yes (3) HLD (hyperlipidemia) SNOMED Code(s): 84748370 ICD Code: E78.5 - HYPERLIPIDEMIA, UNSPECIFIED Status: Chronic Priority: Low Current Visit: No Qualifiers: Hyperlipidemia type: unspecified Qualified Code(s): E78.5 - Hyperlipidemia, unspecified (4) HTN (hypertension) SNOMED Code(s): 58268367 ICD Code: I10 - ESSENTIAL (PRIMARY) HYPERTENSION Status: Chronic Priority: Medium Current Visit: No Qualifiers: Hypertension type: unspecified Qualified Code(s): I10 - Essential (primary) hypertension (5) COPD (chronic obstructive pulmonary disease) SNOMED Code(s): 90752292 ICD Code: J44.9 - CHRONIC OBSTRUCTIVE PULMONARY DISEASE, UNSPECIFIED Status: Chronic Priority: High Current Visit: Yes Qualifiers: COPD type: unspecified COPD Qualified Code(s): J44.9 - Chronic obstructive pulmonary disease, unspecified (6) Chronic back pain SNOMED Code(s): 318499421 ICD Code: M54.9 - DORSALGIA, UNSPECIFIED; G89.29 - OTHER CHRONIC PAIN Status: Chronic Priority: Low Current Visit: No Qualifiers: Back pain location: back pain in unspecified location Back pain laterality: unspecified Qualified Code(s): M54.9 - Dorsalgia, unspecified; G89.29 - Other chronic pain (7) COPD exacerbation SNOMED Code(s): 377008763 ICD Code: J44.1 - CHRONIC OBSTRUCTIVE PULMONARY DISEASE W (ACUTE) EXACERBATION Status: Acute Priority: High Current Visit: Yes (8) Elevated troponin SNOMED Code(s): 324335892, 047729924, 252743796 ICD Code: R77.8 - OTHER SPECIFIED ABNORMALITIES OF PLASMA PROTEINS Status: Acute Priority: High Current Visit: Yes (9) RSV bronchitis SNOMED Code(s): 15830851 ICD Code: J20.5 - ACUTE BRONCHITIS DUE TO RESPIRATORY SYNCYTIAL VIRUS Status: Acute Priority: High Current Visit: Yes (10) Thrombocytopenia SNOMED Code(s): 046642621 ICD Code: D69.6 - THROMBOCYTOPENIA, UNSPECIFIED Status: Acute Priority: Medium Current Visit: Yes (11) Elevated d-dimer SNOMED Code(s): 634016501 ICD Code: R79.89 - OTHER SPECIFIED ABNORMAL FINDINGS OF BLOOD CHEMISTRY St atus: Ruled-out Priority: High Current Visit: Yes (12) ELIESER (acute kidney injury) SNOMED Code(s): 70238027, 28776337 ICD Code: N17.9 - ACUTE KIDNEY FAILURE, UNSPECIFIED Status: Acute Priority: High Current Visit: Yes (13) Elevated C-reactive protein (CRP) SNOMED Code(s): 069800393002427 ICD Code: R79.82 - ELEVATED C-REACTIVE PROTEIN (CRP) Status: Acute Priority: Medium Current Visit: Yes Problem List Initiated/Reviewed/Updated: Yes Orders Last 24hrs: Active Orders 24 hr Category Date Time Status Admission Status [Patient Status] [ADT] Routine ADT 06/04/21 02:38 Active Bedrest Bathroom Privileges [RC] ASDIRECTED Care 06/04/21 03:26 Active Oxygen Therapy [RC] ASDIRECTED Care 06/03/21 19:50 Active Peripheral IV Care [RC] . DIRECTED Care 06/03/21 19:29 Active RT Aerosol Therapy [RC] ASDIRECTED Care 06/04/21 01:07 Active RT Aerosol Therapy [RC] ASDIRECTED Care 06/04/21 03:29 Active Telemetry Monitoring [Cardiac Monitoring] [RC] . Care 06/04/21 03:24 Active DIRECTED Vaccine to be Administered/Admin Charge [RC] ASDIRECTED Care 06/04/21 04:03 Active Heart Healthy Diet [DIET] Diet 06/04/21 Breakfast Active Ang Chest [CT] Stat Exams 06/03/21 20:44 Taken Chest 1V Frontal [CR] Stat Exams 06/03/21 19:28 Taken BLOOD CULTURE [MREF] Stat Lab 06/03/21 19:37 Received BLOOD CULTURE [MREF] Stat Lab 06/03/21 19:46 Received Acetaminophen [TylenoL] Med 06/04/21 03:26 Active 975 mg PO Q6H PRN Albuterol/Ipratropium [DuoNeb 3.0-0.5 MG/3 ML] Med 06/04/21 09:00 Active 3 ml NEB Q6HRRT FLU Vacc TF4527(65UP)/MF59C/PF [Fluad Quad [id number] Med 06/05/21 12:00 Once SYRINGE] 60 mcg IM .ONCE ONE Sodium Chloride 0.9% [Normal Saline] 100 ml Med 06/03/21 21:45 Active IV ASDIRECTED Sodium Chloride 0.9% [Saline Flush] Med 06/03/21 19:27 Active 10 ml FLUSH ASDIRECTED PRN Blood Culture x2 Reflex Set [OM.PC] Stat Oth 06/03/21 19:28 Ordered Isolation [COMM] Routine Oth 06/03/21 19:31 Ordered Peripheral IV Insertion Adult [OM.PC] Stat Oth 06/03/21 19:28 Ordered Code Status [Resuscitation Status] Routine Resus Stat 06/04/21 03:24 Ordered Medication Orders Acetaminophen (Acetaminophen 325 Mg Tab) 975 mg PO Q6H PRN PRN Reason: Pain/Fever Last Admin: 06/04/21 05:33 Dose: 975 mg Documented by: WAIDMIC Albuterol/Ipratropium (Albuterol/Ipratropium 3.0-0.5 Mg/3 Ml Neb Soln) 3 ml NEB Q6HRRT PIA Sodium Chloride (Normal Saline) 100 mls @ 30 mls/min IV ASDIRECTED PIA Last Admin: 06/03/21 21:38 Dose: 30 mls/min Documented by: MAY Influenza Virus Vaccine (Flu Vacc Hb1999(65up)/Mf59c/Pf 60 Mcg/0.5 Ml Syringe) 60 mcg IM .ONCE ONE Stop: 06/05/21 12:01 Sodium Chloride (Sodium Chloride 0.9% 10 Ml Syringe) 10 ml FLUSH ASDIRECTED PRN PRN Reason: Keep Vein Open Last Admin: 06/03/21 21:38 Dose: 10 ml Documented by: Admin: 06/03/21 19:49 Dose: 10 ml Documented by: MICHELE Assessment/Plan Comment:: RSV bronchitis COPD exacerbation Acute and chronic respiratory failure with hypoxia On home O2 (2.5L at night) COPD (chronic obstructive pulmonary disease) Elevated C-reactive protein (CRP) Generalized weakness * O2 as needed to keep saturations above 88%. (Baseline 2.5L only at night) * Daily labs * Respiratory therapy consultation * I-S * Continue home respiratory meds * Scheduled 4 times daily DuoNebs * As needed albuterol nebulizer * As needed albuterol MDI * CM/SW consultation * PT consultation * Steroids as ordered * Azithromycin 500 mg x 3 doses * Given Rocephin in ED. We will discontinue this * Check procalcitonin * Contact/droplet isolation * Blood cultures pending ELIESER (acute kidney injury) * IV fluids as ordered * Avoid nephrotoxic medications if possible * Attempt to obtain old labs to determine baseline HLD (hyperlipidemia) * No acute concerns * Continue home medications as ordered HTN (hypertension) * No acute concerns * Continue home medications as ordered Chronic back pain * Acute concerns * PT * Pain medications as ordered Elevated troponin, inactive * Trending downward inactive Thrombocytopenia * Likely due to viral component * Monitor labs * May need to discontinue Lovenox pending labs Elevated d-dimer, inactive * Very mildly elevated * Negative CTA for PE * No clinical signs of DVT * Ruled in active but monitor Code status: Full code PCP: None in area DVT prophylaxis: Lovenox Disposition: Patient mated to the floor observation status on telemetry for management of COPD exacerbation and RSV bronchitis. Likely length of stay 1 to 2 days pending progress. - Mortality Measure Prognosis:: Good
[2021-06-04] MEDS ORDERED: Albuterol 6.7 GM Inhaler INH PRN (06:56)
[2021-06-04] MEDS ORDERED: Albuterol 0.083% 2.5 MG/3 ML Neb Soln NEB PRN (06:56)
[2021-06-04] MEDS ORDERED: Ondansetron 4 MG/2 ML SDV IV PRN (06:56)
--- NOTE | 2021-06-04 07:56 | CR ---
Chest: Portable view of the chest was obtained. Comparison: No prior chest x-ray, subsequent chest CT performed later on the same day. Nodular density is seen within the left lung base. Surgical clips are seen within the left lung base as well as left axillary region. Lungs otherwise are clear. Heart size and mediastinum are normal. Bony structures are unremarkable. Impression: 1. Prior surgery. 2. Nodule within the left lung base. This was described on subsequent CT study. Please correlate if follow-up CT study is needed to confirm stability in 6 months. Diagnostic code #3
--- NOTE | 2021-06-04 08:07 | CT ---
CT chest Technique: Multiple axial sections were obtained from above the lung apices inferiorly through the lung bases. Intravenous contrast was utilized. Study has been performed as a pulmonary angiogram protocol. Comparison: No prior chest CT, prior chest x-ray performed earlier on the same day (7:56 PM). Findings: Pulmonary arteries are well opacified. No filling defects are seen to indicate pulmonary embolism. 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 This was mentioned to be stenotic on preliminary exam although this is difficult to quantify because of atherosclerotic calcification causing some artifact. Formal angiogram would be needed to further evaluate if clinically indicated. Thoracic aorta shows atherosclerotic calcification with no aneurysm. Mediastinum shows no adenopathy. No axillary adenopathy is seen. No pericardial thickening is seen. Minimal hiatal hernia is noted. Spleen is not included on the study and difficult to determine length. Slight surface nodularity is seen within the liver suspicious for cirrhosis. Lung window settings were reviewed which show a dominant nodule within the left lung base measuring 1.1 cm. This could represent an actual pulmonary nodule or represent enlarged bronchus. Other smaller nodular densities are seen within both sides of the chest most likely representing prior granulomatous disease. Other patchy areas of increased density are most likely due to areas of fibrosis. Bone window settings were reviewed which show prior lumbar spine surgery. Scattered degenerative change is noted within the thoracic spine. No definite acute osseous finding is seen. Surgical clips are seen within the left axillary region. Impression: 1. 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 Atherosclerotic calcification is seen within this area and the study is not optimal for evaluation of stenosis. Formal angiogram would be helpful to further define if clinically indicated. 2. Scattered nodularity within the chest. Findings most likely represent prior granulomatous disease although one nodule within the left base measuring 1.1 cm could represent enlarged dilated bronchus versus an actual nodule. Please correlate if patient's symptoms warrant further evaluation with repeat CT study in 6 months to confirm stability. 3. Cirrhotic change within the liver. 4. No findings of pulmonary embolism. 5. Other findings as described above are most likely chronic. Diagnostic code #3 I agree with preliminary report from [facility], finalized on 06/03/21, 10:57 PM [employer], code 1
[2021-06-04] MEDS: Albuterol/Ipratropium 3.0-0.5 MG/3 ML Neb Soln NEB SCH ×3 (08:58→20:09)
[2021-06-04] MEDS: Azithromycin 500 MG in Sodium Chloride 0.9% 250 ML IV SCH (09:34)
[2021-06-04] MEDS: methylPREDNISolone Sodium Succinate 125 MG/2 ML SDV IVPUSH SCH (09:34)
[2021-06-04] MEDS: Enoxaparin 40 MG/0.4 ML Syringe SUBCUT SCH (09:35)
[2021-06-04] MEDS: Sodium Chloride 0.9% 1,000 ML IV SCH ×2 (09:35→21:49)
[2021-06-04] MEDS: guaiFENesin 600 MG Tab.ER PO SCH ×3 (10:36→20:22)
[2021-06-04] MEDS ORDERED: traMADol 50 MG Tab PO PRN (18:28)
[2021-06-04] MEDS ORDERED: Gabapentin 300 MG Cap PO SCH ×2 (18:30→21:00)
[2021-06-04] MEDS: DULoxetine 30 MG Cap PO SCH (20:18)
[2021-06-04] MEDS: Ursodiol 300 MG Cap PO SCH (20:29)
[2021-06-04] MEDS ORDERED: Pramipexole 0.25 MG Tab PO SCH (21:00)
[2021-06-04] MEDS ORDERED: Montelukast 10 MG Tab PO SCH (21:00)
[2021-06-05] MEDS: Albuterol/Ipratropium 3.0-0.5 MG/3 ML Neb Soln NEB SCH ×3 (02:55→15:15)
[2021-06-05] MEDS ORDERED: Levothyroxine 112 MCG Tab PO SCH (07:00)
[2021-06-05] MEDS ORDERED: Levothyroxine 25 MCG Tab PO SCH (07:00)
[2021-06-05] MEDS: Enoxaparin 40 MG/0.4 ML Syringe SUBCUT SCH (08:29)
[2021-06-05] MEDS: methylPREDNISolone Sodium Succinate 125 MG/2 ML SDV IVPUSH SCH (08:29)
[2021-06-05] MEDS: Azithromycin 500 MG in Sodium Chloride 0.9% 250 ML IV SCH (08:29)
[2021-06-05] MEDS: Gabapentin 300 MG Cap PO SCH ×2 (08:30→12:39)
[2021-06-05] MEDS: DULoxetine 30 MG Cap PO SCH (08:30)
[2021-06-05] MEDS: Gabapentin 600 MG Tab PO SCH ×2 (08:30→12:40)
[2021-06-05] MEDS: guaiFENesin 600 MG Tab.ER PO SCH (08:32)
[2021-06-05] MEDS: Ursodiol 300 MG Cap PO SCH (08:32)
[2021-06-05] MEDS ORDERED: Pantoprazole 40 MG Tab.CR PO SCH (09:00)
[2021-06-05] MEDS ORDERED: Loratadine 10 MG Tab PO SCH (09:00)
[2021-06-05] MEDS ORDERED: amLODIPine 2.5 MG Tab PO SCH (09:00)
[2021-06-05] MEDS ORDERED: Spironolactone 25 MG Tab PO SCH (09:00)
[2021-06-05] MEDS ORDERED: Gabapentin 300 MG Cap PO SCH (09:00)
[2021-06-05] MEDS ORDERED: buPROPion 150 MG Tab.ER PO SCH (09:00)
[2021-06-05] MEDS ORDERED: atorvaSTATin 40 MG Tab PO SCH (09:00)
--- NOTE | 2021-06-05 10:34 | PCM.DCSUM1 ---
<Rosalino Washington - Last Filed: 06/05/21 14:57> Discharge Summary - Hospital Course HPI Initial Comments: Is a 80-year-old female who presents to our ED on the evening of 06/03/2021 via [place] [facility] for shortness of breath, cough and fever that has been ongoing for a few days. Patient resides in [facility] but is up here visiting her daughter. She does have a granddaughter who is RSV positive and is currently hospitalized. She has a history of COPD and is supposed to be on oxygen therapy at night chronically (2.5L) however she has been traveling and did not bring it with. She reports a productive cough. Upon EMS arrival saturations were noted to be in the 80s. She was given a breathing treatment and started on oxygen which improved her symptoms. Denies any chest pain, swelling, or pain in her legs. In the ED twelve-lead EKG was obtained showing sinus tachycardia 111 bpm but no ectopy. Temp was 99.8 Fahrenheit. Respirations 22. Blood pressure 161/81. Pulse ox 95% on oxygen. Labs were obtained showing a WBC of 6.58. Hemoglobin 13.6. Platelet 152,000. Neutrophils were elevated at 77%. There is no bandemia. D-dimer 0.63. Sodium is 137. Potassium 4.3. Chloride 100. Carbon dioxide 27. Anion gap 14.3. BUN is 17. Creatinine 1.0. GFR is 54. Glucose 95. Lactic acid 1.4. Calcium 8.4. Bilirubin 0.9. AST is 57, ALT 38, alkaline phosphatase 286. Troponin is elevated at 0.091. This is repeated and elevated at 0.125. Again this is rechecked and has come down to 0.070. CRP is 6.5. proBNP is 198. Albumin is 2.9. INR is 1.65. ABGs obtained in the left radial with a pH of 7.38. PCO2 of 41.8. PO2 of 64.0. HCO3 of 23.9. O2 saturations 93.7. AA gradient is 84. Obtained well on 2 L via nasal cannula. SARS-CoV-2 RNA is negative. Influenza a and B are both negative. RSV is positive. Chest x-ray is obtained and shows prior surgery and a left lung base nodule. Consider repeat CT study to confirm stability in 6 months. CTA is obtained showing "1. 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 Atherosclerotic calcification is seen within this area and the study is not optimal for evaluation of stenosis. Formal angiogram would be helpful to further define if clinically indicated. 2. Scattered nodularity within the chest. 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 Please correlate if patient symptoms warrant further evaluation repeat CT study in 6 months to confirm stability. 3. Cirrhotic change within the liver. 4. No findings of pulmonary embolism. 5. Other findings as described above are most likely chronic." She is given a DuoNeb and 325 mg aspirin. She is given 2 g of Rocephin and 125 mg methylprednisolone. She carries a history of HLD, hypertension, COPD, chronic back pain. She is a full code. She does not have a PCP locally. She subsequently admitted observation status on telemetry to the medical floor for management of her RSV, hypoxia, COPD exacerbation, and elevated troponin. Diagnosis: Stroke: No - Discharge Data Discharge Date: 06/05/21 (Admit date: 06/04/2021) Discharge Disposition: Home, Self-Care 01 Condition: Good - Referral to Home Health Primary Care Physician: PCP Not In Area - Discharge Diagnosis/Problem(s) (1) Acute and chronic respiratory failure with hypoxia SNOMED Code(s): 21164630, 478786127 ICD Code: J96.21 - ACUTE AND CHRONIC RESPIRATORY FAILURE WITH HYPOXIA Status: Acute Priority: High (2) On home O2 SNOMED Code(s): 576028716930 ICD Code: Z99.81 - DEPENDENCE ON SUPPLEMENTAL OXYGEN Status: Chronic Priority: Medium (3) HLD (hyperlipidemia) SNOMED Code(s): 39661859 ICD Code: E78.5 - HYPERLIPIDEMIA, UNSPECIFIED Status: Chronic Priority: Low Qualifiers: Hyperlipidemia type: unspecified Qualified Code(s): E78.5 - Hyperlipidemia, unspecified (4) HTN (hypertension) SNOMED Code(s): 97011155 ICD Code: I10 - ESSENTIAL (PRIMARY) HYPERTENSION Status: Chronic Priority: Medium Qualifiers: Hypertension type: unspecified Qualified Code(s): I10 - Essential (primary) hypertension (5) COPD (chronic obstructive pulmonary disease) SNOMED Code(s): 29560012 ICD Code: J44.9 - CHRONIC OBSTRUCTIVE PULMONARY DISEASE, UNSPECIFIED Status: Chronic Priority: High Qualifiers: COPD type: unspecified COPD Qualified Code(s): J44.9 - Chronic obstructive pulmonary disease, unspecified (6) Chronic back pain SNOMED Code(s): 781198837 ICD Code: M54.9 - DORSALGIA, UNSPECIFIED; G89.29 - OTHER CHRONIC PAIN Status: Chronic Priority: Low Qualifiers: Back pain location: back pain in unspecified location Back pain laterality: unspecified Qualified Code(s): M54.9 - Dorsalgia, unspecified; G89.29 - Other chronic pain (7) COPD exacerbation SNOMED Code(s): 593349495 ICD Code: J44.1 - CHRONIC OBSTRUCTIVE PULMONARY DISEASE W (ACUTE) EXACERBATION Status: Acute Priority: High (8) Elevated troponin SNOMED Code(s): 340128324, 332708951, 357973458 ICD Code: R77.8 - OTHER SPECIFIED ABNORMALITIES OF PLASMA PROTEINS Status: Acute Priority: High (9) RSV bronchitis SNOMED Code(s): 44509619 ICD Code: J20.5 - ACUTE BRONCHITIS DUE TO RESPIRATORY SYNCYTIAL VIRUS Status: Acute Priority: High (10) Thrombocytopenia SNOMED Code(s): 824482208 ICD Code: D69.6 - THROMBOCYTOPENIA, UNSPECIFIED Status: Acute Priority: Medium (11) Elevated d-dimer SNOMED Code(s): 263375774 ICD Code: R79.89 - OTHER SPECIFIED ABNORMAL FINDINGS OF BLOOD CHEMISTRY Status: Ruled-out Priority: High (12) ELIESER (acute kidney injury) SNOMED Code(s): 78898098, 30560309 ICD Code: N17.9 - ACUTE KIDNEY FAILURE, UNSPECIFIED Status: Acute Priority: High (13) Elevated C-reactive protein (CRP) SNOMED Code(s): 884848371748074 ICD Code: R79.82 - ELEVATED C-REACTIVE PROTEIN (CRP) Status: Acute Priority: Medium (14) Lung nodule SNOMED Code(s): 840808356 ICD Code: R91.1 - SOLITARY PULMONARY NODULE Status: Acute Priority: Medium - Patient Summary/Data Consults: Consultations 06/04/21 06:56 Consult to Case Management/Display Coordinator [CONS] Routine 06/04/21 06:58 PT Evaluation and Treatment [CONS] Routine Respiratory Care Assess and Treatment [CONS] Routine Labs Pending at D/C: Blood cultures - negative thus far Recommended Follow-up Testing/Procedures: Follow-up with primary care provider within 5 to 7 days of discharge, sooner if needed. * RSV positive * Patient given 1 more day of 500 mg azithromycin for COPD exacerbation which she will take tomorrow, 06/06/2021. * Patient does have nebulizer at home with plenty of DuoNeb solution, per her report. * Patient will be discharged on a steroid taper of 40 mg for 3 days, 30 mg for 3 days, 20 mg for 3 days, 10 mg for 3 days. * Patient qualifies for home oxygen 2 L at rest and 5 L with activity. * Recommend repeat CBC, CMP, and magnesium in follow-up. * Recommend outpatient PFT after resolution of symptoms. * All other home medications continued at discharge. * Pulmonary nodule noted on CT scan in left base. Recommend repeat CT scan within 6 months to ensure stability. Recommend follow-up with outpatient pulmonology at next available appointment. Hospital Course: This is a 80-year-old female from [facility] who was in the area visiting family and noted to have acute onset respiratory distress. Patient presented to our ED and was found to be RSV positive. Patient does note multiple family members are currently battling RSV symptoms and one child is in the hospital. Patient does have a longstanding history of multiple chronic lung problems and is on oxygen nocturnally. She was started on 500 a gram azithromycin and will be discharged on 1 more day to complete her treatment. She was started on IV push steroids and will transition to a steroid taper at discharge. This will be prednisone 40 mg for 3 days, 30 mg for 3 days, 20 mg for 3 days and finally 10 mg for 3 days. She was utilizing incentive spirometer was instructed to continue to use this for 1 to 2 weeks. Overall she states she felt better. Recommend repeat CBC, CMP, and magnesium in follow-up. Recommend outpatient PFT after resolution of symptoms. Recommend pulmonary follow-up at next available. Patient was noted to have a possible nodule in her left lung base during CT scan. Recommend repeat CT scan in 6 months to recheck/ensure stability. Patient discharged today. Did advise patient to consider outpatient physical therapy after discharge, as she was working with our physical therapy department while here. Patient discharged on azithromycin and steroid taper as mentioned prior. All other home medications continued. - Patient Instructions Diet: Usual Diet as Tolerated Activity: As Tolerated Driving: Do Not Drive Showering/Bathing: May Shower Notify Provider of: Fever, Increased Pain, Nausea and/or Vomiting Other/Special Instructions: Follow-up with your primary care provider within 5 to 7 days of discharge, sooner if needed. Follow-up with pulmonology within the next few weeks. You will be given 1 more tablet of azithromycin. You should take this tomorrow, 06/06/2021 in the morning. You will have then completed antibiotic treatment. Continue to wear your oxygen as directed. You should wear 2 L at rest and 5 L with activity. If you do not already have one you should obtain a fingertip pulse oximeter. Check your oxygen saturations twice a day and record these in a journal. Bring this with to all medical appointments. This will help adjust oxygen as needed. We noticed a nodule in your left lung. Unsure if this is an actual nodule or some shadowing from your vasculature. Unfortunately we do not have your prior records to compare. This is not emergent or even urgent. Recommend repeat CT scan in 6 months to ensure stability/check if this is anything. You may follow-up with your primary care provider regarding this. Continue to utilize your incentive spirometer (clear/blue device you inhale through) for 1 to 2 weeks or until symptoms resolve. You were given a steroid taper. You should take should take four 10 mg tablets or 40 mg for 3 days and then decrease to three 10 mg tablets or 30 mg for 3 days. After that you should take two 10 mg tablets or 20 mg daily for 3 days. Finally take one 10 mg tablet daily for 3 days. Consider outpatient physical therapy for strengthening. Should symptoms return or worsen contact your primary care provider or return the emergency room. - Discharge Plan *PRESCRIPTION DRUG MONITORING PROGRAM REVIEWED*: No *COPY OF PRESCRIPTION DRUG MONITORING REPORT IN PATIENT ALEXANDRU: No Prescriptions/Med Rec: Azithromycin 500 mg PO DAILY #1 tablet predniSONE [Prednisone] See Taper PO DAILY #30 tablet Ondansetron [Zofran ODT] 4 mg PO Q6H PRN #12 tab.dis PRN Reason: Nausea/Vomiting Home Medications: Home Meds Acetaminophen [Acetaminophen Extra Strength] 500 mg PO PRN 06/04/21 [History] Albuterol Sulfate [Proair Respiclick] 90 mcg IH Q6HR PRN 06/04/21 [History] DULoxetine [Cymbalta] 60 mg PO BID 06/04/21 [History] Diclofenac Sodium [Voltaren] 2 gram TOP QID 06/04/21 [History] Gabapentin [Neurontin] 1,200 mg PO ASDIRECTED 06/04/21 [History] Gabapentin [Neurontin] 900 mg PO ASDIRECTED 06/04/21 [History] LORazepam [Ativan] 1 mg PO BEDTIME PRN 06/04/21 [History] Levothyroxine Sodium [Synthroid] 137 mcg PO DAILY 06/04/21 [History] Loratadine [Claritin] 10 mg PO DAILY 06/04/21 [History] Montelukast Sodium 10 mg PO BEDTIME 06/04/21 [History] Omeprazole 40 mg PO DAILY 06/04/21 [History] Pramipexole Di-HCl [Mirapex] 0.75 mg PO BEDTIME 06/04/21 [History] Spironolactone [Aldactone] 25 mg PO DAILY 06/04/21 [History] Warfarin Sodium 4 mg PO DAILY 06/04/21 [History] Warfarin Sodium 5 mg PO DAILY 06/04/21 [History] amLODIPine Besylate [Norvasc] 2.5 mg PO DAILY 06/04/21 [History] atorvaSTATin Calcium [Atorvastatin Calcium] 40 mg PO DAILY 06/04/21 [History] buPROPion [buPROPion XL] 300 mg PO DAILY 06/04/21 [History] traMADol HCl [Tramadol HCl] 50 mg PO Q6HR PRN 06/04/21 [History] ursodioL [Ursodiol] 300 mg PO BID 06/04/21 [History] Azithromycin 500 mg PO DAILY #1 tablet 06/05/21 [Rx] Ondansetron [Zofran ODT] 4 mg PO Q6H PRN #12 tab.dis 06/05/21 [Rx] predniSONE [Prednisone] See Taper PO DAILY #30 tablet 06/05/21 [Rx] Oxygen Therapy Mode: Nasal Cannula Oxygen Flow Rate (L/min): 2 (2L at rest, 5L with activity) Maintain SPO2% less than: 95 Maintain SpO2% greater than: 88 Patient Handouts: Chronic Obstructive Pulmonary Disease, Home Oxygen Use, Adult, Respiratory Syncytial Virus Infection, Adult Forms: ED Department Discharge Referrals: Jennifer Maldonado [Resident] - (Pleas call to schedule a follow up appointment when you get back to [place] ) - Discharge Summary/Plan Comment DC Time >30 min.: Yes Total # of Minutes for Discharge Time: 45 - General Info Date of Service: 06/05/21 Admission Dx/Problem (Free Text: Admission Diagnosis/Problem Admission Diagnosis/Problem Bronchitis Functional Status: Reports: Pain Controlled, Tolerating Diet, Ambulating, Uri nating, Incentive Spirometry. Denies: New Symptoms - Review of Systems General: Reports: Weakness (improved ). Denies: Fever, Fatigue, Malaise, Chills HEENT: Reports: Post Nasal Drip. Denies: Headaches, Sore Throat Pulmonary: Reports: Shortness of Breath (improved ), Cough, Wheezing. Denies: Pleuritic Chest Pain, Sputum Cardiovascular: Reports: No Symptoms, Dyspnea on Exertion. Denies: Chest Pain, Palpitations, Edema Gastrointestinal: Reports: No Symptoms. Denies: Abdominal Pain, Constipation, Diarrhea, Nausea, Vomiting Genitourinary: Reports: No Symptoms. Denies: Pain Musculoskeletal: Reports: No Symptoms Skin: Reports: No Symptoms. Denies: Cyanosis Neurological: Reports: No Symptoms. Denies: Confusion, Dizziness, Headache, Numbness, Pre-Existing Deficit, Seizure, Syncope, Tingling, Trouble Speaking, Difficulty Walking, Gait Disturbance Psychiatric: Reports: No Symptoms - Patient Data Vitals - Most Recent: Last Vital Signs Temp 97.7 F 06/05/21 04:37 Pulse 103 H 06/05/21 04:37 Resp 24 H 06/05/21 04:37 BP 154/76 H 06/05/21 08:30 Pulse Ox 94 L 06/05/21 04:37 Weight - Most Recent: 90.083 kg I&O - Last 24 hours: Intake & Output 06/04/21 06/05/21 06/05/21 22:59 06:59 14:59 Intake Total 950 1858 Output Total 100 300 Balance 850 1558 Lab Results - Last 24 hrs: Laboratory Results - last 24 hr 06/04/21 06/05/21 06/05/21 Range/Units 07:20 06:03 06:03 WBC 7.45 (3.98-10.04) K/mm3 RBC 4.75 (3.98-5.22) M/mm3 Hgb 12.3 (11.2-15.7) gm/dl Hct 41.2 (34.1-44.9) % MCV 86.7 (79.4-94.8) fl MCH 25.9 (25.6-32.2) pg MCHC 29.9 L (32.2-35.5) g/dl RDW Std Deviation 53.6 H (36.4-46.3) fL Plt Count 157 L (182-369) K/mm3 MPV 11.5 (9.4-12.3) fl Neut % (Auto) 74.6 H (34.0-71.1) % Lymph % (Auto) 14.1 L (19.3-51.7) % Carbon % (Auto) 10.7 (4.7-12.5) % Eos % (Auto) 0 L (0.7-5.8) Baso % (Auto) 0.3 (0.1-1.2) % Neut # (Auto) 5.56 (1.56-6.13) K/mm3 Lymph # (Auto) 1.05 L (1.18-3.74) K/mm3 Carbon # (Auto) 0.80 H (0.24-0.36) K/mm3 Eos # (Auto) 0.00 L (0.04-0.36) K/mm3 Baso # (Auto) 0.02 (0.01-0.08) K/mm3 Sodium 143 (136-145) mEq/L Potassium 4.2 (3.5-5.1) mEq/L Chloride 107 (98-107) mEq/L Carbon Dioxide 27 (21-32) mEq/L Anion Gap 13.2 (5-15) BUN 25 H (7-18) mg/dL Creatinine 1.1 H (0.55-1.02) mg/dL Est Cr Clr Drug Dosing 33.34 mL/min Estimated GFR (MDRD) 48 (>60) mL/min BUN/Creatinine Ratio 22.7 H (14-18) Glucose 89 (70-99) mg/dL Calcium 8.4 L (8.5-10.1) mg/dL C-Reactive Protein 9.5 H* (<1.0) mg/dL Procalcitonin 1.99 H ng/mL Med Orders - Current: Current Medications Acetaminophen (Acetaminophen 325 Mg Tab) 975 mg PO Q6H PRN PRN Reason: Pain/Fever Last Admin: 06/04/21 21:41 Dose: 975 mg Documented by: Albuterol (Albuterol 0.083% 2.5 Mg/3 Ml Neb Soln) 2.5 mg NEB Q2H PRN PRN Reason: Shortness Of Breath/wheezing Albuterol (Albuterol 6.7 Gm Inhaler) 0 gm INH Q2H PRN PRN Reason: Shortness of Breath Albuterol/Ipratropium (Albuterol/Ipratropium 3.0-0.5 Mg/3 Ml Neb Soln) 3 ml NEB Q6HRRT [facility] Last Admin: 06/05/21 09:05 Dose: 3 ml Documented by: Amlodipine Besylate (Amlodipine 2.5 Mg Tab) 2.5 mg PO DAILY [facility] Last Admin: 06/05/21 08:30 Dose: 2.5 mg Documented by: Atorvastatin Calcium (Atorvastatin 40 Mg Tab) 40 mg PO DAILY [facility] Last Admin: 06/05/21 08:30 Dose: 40 mg Documented by: Bupropion HCl (Bupropion 150 Mg Tab.Er) 300 mg PO DAILY [facility] Last Admin: 06/05/21 08:32 Dose: 300 mg Documented by: Duloxetine HCl (Duloxetine 30 Mg Cap) 60 mg PO BID [facility] Last Admin: 06/05/21 08:30 Dose: 60 mg Documented by: Enoxaparin Sodium (Enoxaparin 40 Mg/0.4 Ml Syringe) 40 mg SUBCUT DAILY [facility] Last Admin: 06/05/21 08:29 Dose: 40 mg Documented by: Gabapentin (Gabapentin 600 Mg Tab) 1,200 mg PO BEDTIME [facility] Gabapentin (Gabapentin 300 Mg Cap) 300 mg PO BID@0900,1200 [facility] Last Admin: 06/05/21 08:30 Dose: 300 mg Documented by: Gabapentin (Gabapentin 600 Mg Tab) 600 mg PO BID@0900,1200 [facility] Last Admin: 06/05/21 08:30 Dose: 600 mg Documented by: Guaifenesin (Guaifenesin 600 Mg Tab.Er) 1,200 mg PO BID [facility] Last Admin: 06/05/21 08:32 Dose: Not Given Documented by: Sodium Chloride (Normal Saline) 1,000 mls @ 100 mls/hr IV ASDIRECTED [facility] Stop: 06/05/21 18:29 Last Admin: 06/04/21 21:49 Dose: 100 mls/hr Documented by: Azithromycin 500 mg/ Sodium (Chloride) 250 mls @ 250 mls/hr IV Q24H [facility] Stop: 06/06/21 09:29 Last Admin: 06/05/21 08:29 Dose: 250 mls/hr Documented by: Influenza Virus Vaccine (Flu Vacc [id number](65up)/Mf59c/Pf 60 Mcg/0.5 Ml Syringe) 60 mcg IM .ONCE ONE Stop: 06/05/21 12:01 Levothyroxine Sodium (Levothyroxine 112 Mcg Tab) 112 mcg PO DAILY@0700 [facility] Last Admin: 06/05/21 06:37 Dose: 112 mcg Documented by: Levothyroxine Sodium (Levothyroxine 25 Mcg Tab) 25 mcg PO DAILY@0700 [facility] Last Admin: 06/05/21 06:37 Dose: 25 mcg Documented by: Loratadine (Loratadine 10 Mg Tab) 10 mg PO DAILY [facility] Last Admin: 06/05/21 08:32 Dose: 10 mg Documented by: Methylprednisolone Sodium Succinate (Methylprednisolone Sodium Succinate 125 Mg/2 Ml Sdv) 60 mg IVPUSH DAILY [facility] Last Admin: 06/05/21 08:29 Dose: 60 mg Documented by: Montelukast Sodium (Montelukast 10 Mg Tab) 10 mg PO BEDTIME [facility] Last Admin: 06/04/21 20:18 Dose: 10 mg Documented by: Ondansetron HCl (Ondansetron 4 Mg/2 Ml Sdv) 4 mg IV Q6H PRN PRN Reason: Nausea/Vomiting Last Admin: 06/04/21 11:27 Dose: 4 mg Documented by: Pantoprazole Sodium (Pantoprazole 40 Mg Tab.Cr) 40 mg PO DAILY [facility] Last Admin: 06/05/21 08:30 Dose: 40 mg Documented by: Pramipexole Dihydrochloride (Pramipexole 0.25 Mg Tab) 0.75 mg PO BEDTIME [facility] Last Admin: 06/04/21 20:18 Dose: 0.75 mg Documented by: Senna/Docusate Sodium (Docusate Sodium/Sennosides 50-8.6 Mg Tab) 1 tab PO BID PRN PRN Reason: Constipation Sodium Chloride (Sodium Chloride 0.9% 10 Ml Syringe) 10 ml FLUSH ASDIRECTED PRN PRN Reason: Keep Vein Open Last Admin: 06/03/21 21:38 Dose: 10 ml Documented by: Spironolactone (Spironolactone 25 Mg Tab) 25 mg PO DAILY [facility] Last Admin: 06/05/21 08:32 Dose: 25 mg Documented by: Tramadol HCl (Tramadol 50 Mg Tab) 50 mg PO Q6HR PRN PRN Reason: Pain Ursodiol (Ursodiol 300 Mg Cap) 300 mg PO BID [facility] Last Admin: 06/05/21 08:32 Dose: Not Given Documented by: Discontinued Medications Albuterol/Ipratropium (Albuterol/Ipratropium 3.0-0.5 Mg/3 Ml Neb Soln) 3 ml NEB ONETIME ONE Stop: 06/03/21 19:28 Last Admin: 06/03/21 19:54 Dose: 3 ml Documented by: Albuterol/Ipratropium (Albuterol/Ipratropium 3.0-0.5 Mg/3 Ml Neb Soln) 3 ml NEB ONETIME ONE Stop: 06/04/21 01:07 Last Admin: 06/04/21 01:23 Dose: 3 ml Documented by: Aspirin (Aspirin 81 Mg Tab.Chew) 324 mg PO ONETIME ONE Stop: 06/03/21 22:44 Last Admin: 06/04/21 07:57 Dose: Not Given Documented by: Gabapentin (Gabapentin 300 Mg Cap) 900 mg PO ASDIRECTED [facility] Gabapentin (Gabapentin 300 Mg Cap) 1,200 mg PO BEDTIME [facility] Last Admin: 06/04/21 20:19 Dose: 1,200 mg Documented by: Gabapentin (Gabapentin 300 Mg Cap) 900 mg PO BID@0900,1200 [facility] Ceftriaxone Sodium 2 gm/ (Sodium Chloride) 100 mls @ 200 mls/hr IV ONETIME ONE Stop: 06/03/21 21:11 Last Admin: 06/03/21 21:14 Dose: 200 mls/hr Documented by: Sodium Chloride (Normal Saline) 100 mls @ 30 mls/min IV ASDIRECTED [facility] Last Admin: 06/03/21 21:38 Dose: 30 mls/min Documented by: Influenza Virus Vaccine (Pharmacy To Dose - Influenza Vaccine) 1 each IM ONETIME ONE Stop: 06/05/21 12:01 Iopamidol (Iopamidol 755 Mg/Ml 100 Ml Bottle) 100 ml IVPUSH ONETIME ONE Stop: 06/03/21 21:37 Last Admin: 06/03/21 21:38 Dose: 100 ml Documented by: Methylprednisolone Sodium Succinate (Methylprednisolone Sodium Succinate 125 Mg/2 Ml Sdv) 125 mg IVPUSH ONETIME ONE Stop: 06/03/21 20:43 Last Admin: 06/03/21 21:14 Dose: 125 mg Documented by: Sodium Chloride (Sodium Chloride 0.9% 10 Ml Sdv) 10 ml FLUSH ONETIME ONE Stop: 06/03/21 21:37 Last Admin: 06/03/21 22:00 Dose: 10 ml Documented by: - Exam Quality Assessment: Reports: Supplemental Oxygen (2L), DVT Prophylaxis General: Reports: Alert, Oriented, Cooperative, No Acute Distress HEENT: Reports: Pupils Equal, Pupils Reactive, Mucous Membr. Moist/[place] Neck: Reports: Supple, Trachea Midline Lungs: Reports: Normal Respiratory Effort, Decreased Breath Sounds, Wheezing. Denies: Rhonchi Cardiovascular: Reports: Regular Rate, Regular Rhythm GI/Abdominal Exam: Normal Bowel Sounds, Soft, Non-Tender, No Distention (Female) Exam: Deferred Rectal (Female) Exam: Deferred Back Exam: Reports: Normal Inspection, Full Range of Motion Extremities: Normal Inspection, Normal Range of Motion, Non-Tender, No Pedal Edema, Normal Capillary Refill Skin: Reports: Warm, Dry, Intact Neurological: Reports: No New Focal Deficit Psy/Mental Status: Reports: Alert, Normal Affect, Normal Mood <Chu Tai - Last Filed: 06/05/21 16:48> Discharge Summary - Referral to Home Health Primary Care Physician: PCP Not In Area - Patient Summary/Data Consults: Consultations 06/04/21 06:56 Consult to Case Management/Display Coordinator [CONS] Routine 06/04/21 06:58 PT Evaluation and Treatment [CONS] Routine Respiratory Care Assess and Treatment [CONS] Routine Hospital Course: I have seen and examined the patient independently of Rosalino Washington PA-C, and have discussed the case with him. I have reviewed the orders and agree with the plan of care for this patient as outlined by him. Please see orders. - Patient Data Vitals - Most Recent: Last Vital Signs Temp 36.8 C 06/05/21 11:26 Pulse 99 06/05/21 11:26 Resp 24 H 06/05/21 11:26 BP 127/77 06/05/21 11:26 Pulse Ox 94 L 06/05/21 15:18 I&O - Last 24 hours: Intake & Output 06/05/21 06/05/21 06/05/21 06:59 14:59 22:59 Intake Total 1858 Output Total 300 Balance 1558 Lab Results - Last 24 hrs: Laboratory Results - last 24 hr 06/04/21 06/05/21 06/05/21 Range/Units 07:20 06:03 06:03 WBC 7.45 (3.98-10.04) K/mm3 RBC 4.75 (3.98-5.22) M/mm3 Hgb 12.3 (11.2-15.7) gm/dl Hct 41.2 (34.1-44.9) % MCV 86.7 (79.4-94.8) fl MCH 25.9 (25.6-32.2) pg MCHC 29.9 L (32.2-35.5) g/dl RDW Std Deviation 53.6 H (36.4-46.3) fL Plt Count 157 L (182-369) K/mm3 MPV 11.5 (9.4-12.3) fl Neut % (Auto) 74.6 H (34.0-71.1) % Lymph % (Auto) 14.1 L (19.3-51.7) % Carbon % (Auto) 10.7 (4.7-12.5) % Eos % (Auto) 0 L (0.7-5.8) Baso % (Auto) 0.3 (0.1-1.2) % Neut # (Auto) 5.56 (1.56-6.13) K/mm3 Lymph # (Auto) 1.05 L (1.18-3.74) K/mm3 Carbon # (Auto) 0.80 H (0.24-0.36) K/mm3 Eos # (Auto) 0.00 L (0.04-0.36) K/mm3 Baso # (Auto) 0.02 (0.01-0.08) K/mm3 Sodium 143 (136-145) mEq/L Potassium 4.2 (3.5-5.1) mEq/L Chloride 107 (98-107) mEq/L Carbon Dioxide 27 (21-32) mEq/L Anion Gap 13.2 (5-15) BUN 25 H (7-18) mg/dL Creatinine 1.1 H (0.55-1.02) mg/dL Est Cr Clr Drug Dosing 33.34 mL/min Estimated GFR (MDRD) 48 (>60) mL/min BUN/Creatinine Ratio 22.7 H (14-18) Glucose 89 (70-99) mg/dL Calcium 8.4 L (8.5-10.1) mg/dL C-Reactive Protein 9.5 H* (<1.0) mg/dL Procalcitonin 1.99 H ng/mL [facility] Results - Last 24 hrs: Microbiology 06/03/21 19:37 Blood Culture - Preliminary Blood - Venous - Lab Draw 06/03/21 19:46 Blood Culture - Preliminary Blood - Venous Med Orders - Current: Current Medications Acetaminophen (Acetaminophen 325 Mg Tab) 975 mg PO Q6H PRN PRN Reason: Pain/Fever Last Admin: 06/04/21 21:41 Dose: 975 mg Documented by: Albuterol (Albuterol 0.083% 2.5 Mg/3 Ml Neb Soln) 2.5 mg NEB Q2H PRN PRN Reason: Shortness Of Breath/wheezing Albuterol (Albuterol 6.7 Gm Inhaler) 0 gm INH Q2H PRN PRN Reason: Shortness of Breath Albuterol/Ipratropium (Albuterol/Ipratropium 3.0-0.5 Mg/3 Ml Neb Soln) 3 ml NEB Q6HRRT [facility] Last Admin: 06/05/21 15:15 Dose: 3 ml Documented by: Amlodipine Besylate (Amlodipine 2.5 Mg Tab) 2.5 mg PO DAILY [facility] Last Admin: 06/05/21 08:30 Dose: 2.5 mg Documented by: Atorvastatin Calcium (Atorvastatin 40 Mg Tab) 40 mg PO DAILY [facility] Last Admin: 06/05/21 08:30 Dose: 40 mg Documented by: Bupropion HCl (Bupropion 150 Mg Tab.Er) 300 mg PO DAILY [facility] Last Admin: 06/05/21 08:32 Dose: 300 mg Documented by: Duloxetine HCl (Duloxetine 30 Mg Cap) 60 mg PO BID [facility] Last Admin: 06/05/21 08:30 Dose: 60 mg Documented by: Enoxaparin Sodium (Enoxaparin 40 Mg/0.4 Ml Syringe) 40 mg SUBCUT DAILY [facility] Last Admin: 06/05/21 08:29 Dose: 40 mg Documented by: Gabapentin (Gabapentin 600 Mg Tab) 1,200 mg PO BEDTIME PIA Gabapentin (Gabapentin 300 Mg Cap) 300 mg PO BID@0900,1200 [facility] Last Admin: 06/05/21 12:39 Dose: 300 mg Documented by: Gabapentin (Gabapentin 600 Mg Tab) 600 mg PO BID@0900,1200 [facility] Last Admin: 06/05/21 12:40 Dose: 600 mg Documented by: Guaifenesin (Guaifenesin 600 Mg Tab.Er) 1,200 mg PO BID [facility] Last Admin: 06/05/21 08:32 Dose: Not Given Documented by: Sodium Chloride (Normal Saline) 1,000 mls @ 100 mls/hr IV ASDIRECTED [facility] Stop: 06/05/21 18:29 Last Admin: 06/04/21 21:49 Dose: 100 mls/hr Documented by: Azithromycin 500 mg/ Sodium (Chloride) 250 mls @ 250 mls/hr IV Q24H [facility] Stop: 06/06/21 09:29 Last Admin: 06/05/21 08:29 Dose: 250 mls/hr Documented by: Levothyroxine Sodium (Levothyroxine 112 Mcg Tab) 112 mcg PO DAILY@0700 [facility] Last Admin: 06/05/21 06:37 Dose: 112 mcg Documented by: Levothyroxine Sodium (Levothyroxine 25 Mcg Tab) 25 mcg PO DAILY@0700 [facility] Last Admin: 06/05/21 06:37 Dose: 25 mcg Documented by: Loratadine (Loratadine 10 Mg Tab) 10 mg PO DAILY [facility] Last Admin: 06/05/21 08:32 Dose: 10 mg Documented by: Methylprednisolone Sodium Succinate (Methylprednisolone Sodium Succinate 125 Mg/2 Ml Sdv) 60 mg IVPUSH DAILY [facility] Last Admin: 06/05/21 08:29 Dose: 60 mg Documented by: Montelukast Sodium (Montelukast 10 Mg Tab) 10 mg PO BEDTIME [facility] Last Admin: 06/04/21 20:18 Dose: 10 mg Documented by: Ondansetron HCl (Ondansetron 4 Mg/2 Ml Sdv) 4 mg IV Q6H PRN PRN Reason: Nausea/Vomiting Last Admin: 06/04/21 11:27 Dose: 4 mg Documented by: Pantoprazole Sodium (Pantoprazole 40 Mg Tab.Cr) 40 mg PO DAILY [facility] Last Admin: 06/05/21 08:30 Dose: 40 mg Documented by: Pramipexole Dihydrochloride (Pramipexole 0.25 Mg Tab) 0.75 mg PO BEDTIME [facility] Last Admin: 06/04/21 20:18 Dose: 0.75 mg Documented by: Senna/Docusate Sodium (Docusate Sodium/Sennosides 50-8.6 Mg Tab) 1 tab PO BID PRN PRN Reason: Constipation Sodium Chloride (Sodium Chloride 0.9% 10 Ml Syringe) 10 ml FLUSH ASDIRECTED PRN PRN Reason: Keep Vein Open Last Admin: 06/03/21 21:38 Dose: 10 ml Documented by: Spironolactone (Spironolactone 25 Mg Tab) 25 mg PO DAILY [facility] Last Admin: 06/05/21 08:32 Dose: 25 mg Documented by: Tramadol HCl (Tramadol 50 Mg Tab) 50 mg PO Q6HR PRN PRN Reason: Pain Ursodiol (Ursodiol 300 Mg Cap) 300 mg PO BID [facility] Last Admin: 06/05/21 08:32 Dose: Not Given Documented by: Discontinued Medications Albuterol/Ipratropium (Albuterol/Ipratropium 3.0-0.5 Mg/3 Ml Neb Soln) 3 ml NEB ONETIME ONE Stop: 06/03/21 19:28 Last Admin: 06/03/21 19:54 Dose: 3 ml Documented by: Albuterol/Ipratropium (Albuterol/Ipratropium 3.0-0.5 Mg/3 Ml Neb Soln) 3 ml NEB ONETIME ONE Stop: 06/04/21 01:07 Last Admin: 06/04/21 01:23 Dose: 3 ml Documented by: Aspirin (Aspirin 81 Mg Tab.Chew) 324 mg PO ONETIME ONE Stop: 06/03/21 22:44 Last Admin: 06/04/21 07:57 Dose: Not Given Documented by: Gabapentin (Gabapentin 300 Mg Cap) 900 mg PO ASDIRECTED PIA Gabapentin (Gabapentin 300 Mg Cap) 1,200 mg PO BEDTIME [facility]IA Last Admin: 06/04/21 20:19 Dose: 1,200 mg Documented by: Gabapentin (Gabapentin 300 Mg Cap) 900 mg PO BID@0900,1200 [facility] Ceftriaxone Sodium 2 gm/ (Sodium Chloride) 100 mls @ 200 mls/hr IV ONETIME ONE Stop: 06/03/21 21:11 Last Admin: 06/03/21 21:14 Dose: 200 mls/hr Documented by: Sodium Chloride (Normal Saline) 100 mls @ 30 mls/min IV ASDIRECTED [facility]IA Last Admin: 06/03/21 21:38 Dose: 30 mls/min Documented by: Influenza Virus Vaccine (Pharmacy To Dose - Influenza Vaccine) 1 each IM ONETIME ONE Stop: 06/05/21 12:01 Influenza Virus Vaccine (Flu Vacc Zn6228(65up)/Mf59c/Pf 60 Mcg/0.5 Ml Syringe) 60 mcg IM .ONCE ONE Stop: 06/05/21 12:01 Last Admin: 06/05/21 12:40 Dose: Not Given Documented by: Iopamidol (Iopamidol 755 Mg/Ml 100 Ml Bottle) 100 ml IVPUSH ONETIME ONE Stop: 06/03/21 21:37 Last Admin: 06/03/21 21:38 Dose: 100 ml Documented by: Methylprednisolone Sodium Succinate (Methylprednisolone Sodium Succinate 125 Mg/2 Ml Sdv) 125 mg IVPUSH ONETIME ONE Stop: 06/03/21 20:43 Last Admin: 06/03/21 21:14 Dose: 125 mg Documented by: Sodium Chloride (Sodium Chloride 0.9% 10 Ml Sdv) 10 ml FLUSH ONETIME ONE Stop: 06/03/21 21:37 Last Admin: 06/03/21 22:00 Dose: 10 ml Documented by:
[2021-06-05] MEDS ORDERED: FLU Vacc QS2021(65UP)/MF59C/PF 60 MCG/0.5 ML Syringe IM ONE (12:00)
[2021-06-05] MEDS ORDERED: Gabapentin 600 MG Tab PO SCH (21:00)
== END 2021-06-05 15:51 | disposition home or self-care (01) ==
LOC: JD.ED 19:14 → JD.MS 06-04 02:38
PROVIDERS: ADMIT Pediatrics; ATTEND Pediatrics
DX: J44.1 Chronic obstructive pulmonary disease with (acute) exacerbation (principal); J20.5 Acute bronchitis due to respiratory syncytial virus; J96.21 Acute and chronic respiratory failure with hypoxia; I10 Essential (primary) hypertension; G89.29 Other chronic pain; M54.50 Low back pain, unspecified; E78.00 Pure hypercholesterolemia, unspecified; E03.9 Hypothyroidism, unspecified; E66.9 Obesity, unspecified; D69.6 Thrombocytopenia, unspecified; N17.9 Acute kidney failure, unspecified; R79.82 Elevated C-reactive protein (CRP); Z90.49 Acquired absence of other specified parts of digestive tract; Z98.890 Other specified postprocedural states; Z99.81 Dependence on supplemental oxygen; Z20.822 Contact with and (suspected) exposure to COVID-19
CPT/HCPCS: 0241U; 36415; 36600; 71045; 71275; 80048; 80053; 82803; 83605; 83735; 83880; 84145; 84484; 85007; 85025; 85027; 85379; 85610; 86140; 87040; 93005; 94640; 94761; 96365; 96366; 96367; 96372; 96375; 96376; 97110; 97116; 97162; 97530; 99285; A9270; G0378; J0456; J0696; J1650; J2405; J2930; J7030; J7050; Q9967; J7620-GY